=== PATIENT | male | born 1995 | race Caucasian/White ===

== ENCOUNTER 2016-09-19 07:05 | Emergency (ER) | payer BC ==
[2016-09-19 07:22] VITALS: BP 115/77
--- NOTE | 2016-09-19 07:34 | UC ---
Ear Complaint HPI - HPI Summary HPI Summary: LEFT EAR PAIN X 3 DAYS DECREASE HEARING , FEELS PLUGGED, + RINGING IN THE EAR , NO NASAL CONGESTION, NO SINUS PAIN OR PRESSURE , NO COUGH AND NO FEVER. - History of Current Complaint Chief Complaint: UCEar Stated Complaint: RIGHT EAR COMPLAINT Time Seen by Provider: 09/19/16 07:26 Hx Obtained From: Patient Onset/Duration: Gradual Onset, Lasting Days - 3, Still Present Severity Initially: Moderate Severity Currently: Moderate Aggravating Factors: Nothing Alleviating Factors: Nothing Associated Signs/Symptoms: Positive: Hearing Loss - LEFT EAR. Negative: Foreign Body Sensation, Trauma to Ear, Swelling @, URI Symptoms - Allergies/Home Medications Allergies/Adverse Reactions: Allergies Allergy/AdvReac Type Severity Reaction Status Date / Time No Known Allergies Allergy Verified 09/19/16 07:17 Home Medications: Home Medications Ibuprofen TAB* [Advil TAB*] 400 mg PO Q6H PRN 09/19/16 [History Confirmed ] PMH/Surg Hx/FS Hx/Imm Hx Endocrine History Of: Denies: Diabetes, Thyroid Disease Cardiovascular History Of: Denies: Cardiac Disorders, Hypertension, Pacemaker/ICD Respiratory History Of: Denies: COPD, Asthma GI/ History Of: Denies: Ulcer - Surgical History Surgical History: Yes Surgery Procedure, Year, and Place: [place] teeth - Family History Known Family History: Positive: None, Other - no hx gout - Social History Alcohol Use: Occasionally Substance Use Type: None Smoking Status (MU): Never Smoked Tobacco Have You Smoked in the Last Year: No Review of Systems Constitutional: Negative Skin: Negative Eyes: Negative ENT: Ear Ache Respiratory: Negative Cardiovascular: Negative Gastrointestinal: Negative Genitourinary: Negative Motor: Negative All Other Systems Reviewed And Are Negative: Yes Physical Exam Triage Information Reviewed: Yes Appearance: Well-Appearing, No Pain Distress, Well-Nourished Vital Signs: Initial Vital Signs Temp 97.6 F 09/19/16 07:18 Pulse 87 09/19/16 07:18 Resp 16 09/19/16 07:18 BP 115/77 09/19/16 07:18 Pulse Ox 100 09/19/16 07:18 Eye Exam: Normal Eyes: Positive: Conjunctiva Clear ENT: Positive: Normal ENT inspection, Hearing grossly normal, Pharynx normal, Nasal drainage, TMs normal. Negative: TM bulging, TM dull, TM red Dental Exam: Normal Dental: Positive: Percussion Tenderness @ Neck exam: Normal Neck: Positive: Supple, Nontender Respiratory Exam: Normal Respiratory: Positive: Chest non-tender, Lungs clear, Normal breath sounds Cardiovascular: Positive: RRR, No Murmur, Pulses Normal Skin Exam: Normal Ear Complaint Course/Dx - Differential Dx/Diagnosis Provider Diagnoses: EUSTACHIAN TUBE DYSFUNCTION Discharge - Discharge Plan Condition: Stable Disposition: HOME Prescriptions: Fluticasone NASAL SPRAY 50MCG* [Flonase NASAL SPRAY 50MCG*] 2 spray BOTH NARES DAILY #1 btl Patient Education Materials: Eustachian Tube Dysfunction (GEN) Referrals: Ginette Eldridge MD [Primary Care Provider] - 7 Days
== END 2016-09-19 07:38 | disposition home or self-care (01) ==
LOC: UCCORT 07:05
DX: H69.92 Unspecified Eustachian tube disorder, left ear (principal)
CPT/HCPCS: 99212; G0463

== ENCOUNTER 2017-05-21 13:10 | Emergency (ER) | payer BC ==
[2017-05-21 13:26] VITALS: BP 106/78
--- NOTE | 2017-05-21 13:59 | RAD ---
Indication: Left thumb injury. 3 views of left thumb demonstrates no fracture. Soft tissue defect is noted at the distal interphalangeal joint in its ulnar aspect. No radiopaque foreign body or fracture is noted. IMPRESSION: No radiopaque foreign body is noted. No fracture is noted.
--- NOTE | 2017-05-21 14:28 | UC ---
Laceration HPI - HPI Summary HPI Summary: AT 1310 TODAY DRILL BIT SLIPPED CAUSING LACERATION TO LEFT THUMB. TETANUS UTD. 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 Laceration Location: Finger Mechanism Of Injury: Sharp Trauma Onset/Duration: Sudden Onset, Lasting Minutes Severity: Mild Aggravating Factors: Movement Related History: Dominant Hand Right - Allergies/Home Medications Allergies/Adverse Reactions: Allergies Allergy/AdvReac Type Severity Reaction Status Date / Time No Known Allergies Allergy Verified 05/21/17 13:26 PMH/Surg Hx/FS Hx/Imm Hx Previously Healthy: Yes - Surgical History Surgical History: Yes Surgery Procedure, Year, and Place: [place] teeth - Family History Known Family History: Positive: None, Other - no hx gout - Social History Occupation: Student Lives: With Family Alcohol Use: Occasionally Substance Use Type: None Smoking Status (MU): Never Smoked Tobacco Have You Smoked in the Last Year: No Review of Systems Constitutional: Negative Skin: Other - LACERATION LEFT THUMB Eyes: Negative ENT: Negative Respiratory: Negative Cardiovascular: Negative Gastrointestinal: Negative Genitourinary: Negative Motor: Negative Neurovascular: Negative Musculoskeletal: Negative Neurological: Negative Psychological: Negative Is Patient Immunocompromised?: No All Other Systems Reviewed And Are Negative: Yes Physical Exam Triage Information Reviewed: Yes Appearance: Well-Appearing, No Pain Distress, Well-Nourished Vital Signs: Initial Vital Signs Temp 99.2 F 05/21/17 13:18 Pulse 80 05/21/17 13:18 Resp 18 05/21/17 13:18 BP 106/78 05/21/17 13:18 Vital Signs Reviewed: Yes Eye Exam: Normal ENT Exam: Normal ENT: Positive: Normal ENT inspection, Hearing grossly normal, Pharynx normal Dental Exam: Normal Neck exam: Normal Neck: Positive: Supple, Nontender, No Lymphadenopathy Respiratory Exam: Normal Respiratory: Positive: Chest non-tender, Lungs clear, Normal breath sounds, No respiratory distress, No accessory muscle use Cardiovascular Exam: Normal Cardiovascular: Positive: RRR, No Murmur, Pulses Normal Abdominal Exam: Normal Musculoskeletal Exam: Normal Musculoskeletal: Positive: Strength Intact, ROM Intact Neurological Exam: Normal Neurological: Positive: Alert Psychological Exam: Normal Skin: Positive: Other - LACERATION LEFT THUMB Laceration Repair - Laceration Repair 1 Description: Irregular Laceration Size After Repair: Length (cm) - 1, Width (mm) - 2, Depth (mm) - 2 Cleansing Completed Via Routine Prep: Yes Irrigation With Pressure Irrigation Device: Yes Closure Material: Skin Adhesive, SteriStrips Diagnostics - Radiology No standard instances Xray Interpretation: Positive (See Comments) - Interpreted by radiologist, reviewed by PAAnnabella. Interpretation : NO FRACTURE OR RADIO-OPAQUE FOREIGN BODY Radiology Interpretation Completed By: ED Physician, Radiologist Laceration Course/Dx - Differential Dx - Laceration/Wound Differental Diagnoses: Laceration Provider Diagnoses: LACERATION LEFT THUMB WITH STERISTRIP/SKIN ADHESIVE REPAIR Discharge - Discharge Plan Condition: Stable Disposition: HOME Patient Education Materials: Finger Laceration (ED), Skin Adhesive Care (ED), Steristrips (ED) Referrals: Ginette Eldridge MD [Primary Care Provider] -
== END 2017-05-21 14:24 | disposition home or self-care (01) ==
LOC: UCCORT 13:10
DX: S61.012A Laceration without foreign body of left thumb without damage to nail, initial encounter (principal); W27.8XXA Contact with other nonpowered hand tool, initial encounter
CPT/HCPCS: 12001; 99211; G0463

== ENCOUNTER 2017-06-18 08:47 | Emergency (ER) | payer BC ==
--- NOTE | 2017-06-18 09:06 | UC ---
Nausea/Vomiting/Diarrhea HPI - HPI Summary HPI Summary: 21 year old male presents with severe diarrhea x 1 week. - History of Current Complaint Stated Complaint: DIARRHEA Time Seen by Provider: 06/18/17 09:05 Hx Obtained From: Patient Onset/Duration: Sudden Onset Severity Initially: Moderate Severity Currently: Moderate Pain Scale Used: 0-10 Numeric - 0 - Allergies/Home Medications Allergies/Adverse Reactions: Allergies Allergy/AdvReac Type Severity Reaction Status Date / Time No Known Allergies Allergy Verified 06/18/17 09:09 PMH/Surg Hx/FS Hx/Imm Hx Previously Healthy: Yes - Surgical History Surgical History: Yes Surgery Procedure, Year, and Place: [place] teeth - Family History Known Family History: Positive: None, Other - no hx gout - Social History Alcohol Use: Occasionally Substance Use Type: None Smoking Status (MU): Never Smoked Tobacco Have You Smoked in the Last Year: No Review of Systems Constitutional: Negative Skin: Negative Eyes: Negative ENT: Negative Respiratory: Negative Cardiovascular: Negative Gastrointestinal: Diarrhea Genitourinary: Negative Motor: Negative Neurovascular: Negative Musculoskeletal: Negative Neurological: Negative Psychological: Negative All Other Systems Reviewed And Are Negative: Yes Physical Exam Triage Information Reviewed: Yes Eye Exam: Normal ENT Exam: Normal Dental Exam: Normal Neck exam: Normal Neck: Positive: 1 Respiratory Exam: Normal Cardiovascular Exam: Normal Abdominal Exam: Normal Musculoskeletal Exam: Normal Neurological Exam: Normal Psychological Exam: Normal Skin Exam: Normal Naus/Vom/Diarrhea Course/Dx - Differential Dx/Diagnosis Provider Diagnoses: diarrhea Condition At Discharge: Stable Discharge - Discharge Plan Condition: Stable Disposition: OTHER Discharge Disposition Comment: patient suggested to go to the er Patient Education Materials: Acute Diarrhea (ED) Referrals: Ginette Eldridge MD [Primary Care Provider] - Additional Instructions: PATIENT SUGGESTED TO GO TO THE ER FOR SEVERE DIARRHEA
[2017-06-18 09:09] VITALS: BP 110/74
== END 2017-06-18 09:20 ==
LOC: UCCORT 08:47
DX: R19.7 Diarrhea, unspecified (principal)
CPT/HCPCS: 99212; G0463

== ENCOUNTER 2017-08-27 14:32 | Emergency (ER) | payer SELFPAY ==
[2017-08-27 15:17] VITALS: BP 124/69
--- NOTE | 2017-08-27 15:30 | ED ---
Throat Pain/Nasal Congestion - HPI Summary HPI Summary: 21 yr old male with the complaint of FB in right eye. The patient was using a saws all on an old pipe overhead and felt some metal shavings go in his right eye. he flushed his eye, but feels like he might have piece still in eye. Denies blurred vision. He states last tetanus shot is up to date. - History of Current Complaint Chief Complaint: UCEye Time Seen by Provider: 08/27/17 15:18 - Allergies/Home Medications Allergies/Adverse Reactions: Allergies Allergy/AdvReac Type Severity Reaction Status Date / Time No Known Allergies Allergy Verified 08/27/17 15:12 PMH/Surg Hx/FS Hx/Imm Hx Endocrine/Hematology History: Denies: Hx Diabetes, Hx Thyroid Disease Cardiovascular History: Denies: Hx Hypertension, Hx Pacemaker/ICD Respiratory History: Denies: Hx Asthma, Hx Chronic Obstructive Pulmonary Disease (COPD) GI History: Denies: Hx Ulcer Sensory History: Denies: Hx Hearing Aid Psychiatric History: Denies: Hx Panic Disorder - Surgical History Surgery Procedure, Year, and Place: [place] teeth Infectious Disease History: No Infectious Disease History: Denies: Hx Clostridium Difficile, Hx Hepatitis, Hx Human Immunodeficiency Virus (HIV), Hx of Known/Suspected MRSA, Hx Shingles, Hx Tuberculosis, Hx Known/ Suspected VRE, Hx Known/Suspected VRSA, History Other Infectious Disease, Traveled Outside the in Last 30 Days - Family History Known Family History: Positive: None, Other - no hx gout - Social History Occupation: Employed Full-time Alcohol Use: Occasionally Substance Use Type: Reports: None Smoking Status (MU): Never Smoked Tobacco Have You Smoked in the Last Year: No Review of Systems Constitutional: Negative Positive: Other - irritation right eye, possible FB. All Other Systems Reviewed And Are Negative: Yes Physical Exam Triage Information Reviewed: Yes Vital Signs On Initial Exam: Initial Vitals Temp Pulse Resp BP Pulse Ox 98 F 74 16 124/69 98 08/27/17 15:10 08/27/17 15:10 08/27/17 15:10 08/27/17 15:10 08/27/17 15:10 Vital Signs Reviewed: Yes Appearance: Positive: Well-Appearing, No Pain Distress Skin: Positive: Warm, Skin Color Reflects Adequate Perfusion Head/Face: Positive: Normal Head/Face Inspection Eyes: Positive: EOMI, CHRISTIE, Conjunctiva Inflammed - right eye, Other: - No obvious FB seen, but suspect could have FB at the 8 oclock position limbus right eye. Visualized under light from otoscope with naked eye. Diagnostics - Vital Signs Vital Signs Temp Pulse Resp BP Pulse Ox 08/27/17 15:10 98 F 74 16 124/69 98 - Laboratory Lab Statement: Any lab studies that have been ordered have been reviewed, and results considered in the medical decision making process. EENT Course/Dx - Course Course Of Treatment: 21 yr old male who required ER visit so that slit lamp exam can be done. He is aware he needs to go to the ER for further examination with slit lamp and possible removal of FB seen under high magnification. - Diagnoses Provider Diagnoses: FB eye Discharge - Discharge Plan Condition: Good Disposition: HOME Patient Education Materials: Eye Foreign Body (ED) Referrals: Ginette Eldridge MD [Primary Care Provider] - Additional Instructions: You need to go to the ER in [place] where they have the equipment to view your eye under magnification. Please go there immediately from here for further care. It is possible you have a piece of metal in your cornea.
== END 2017-08-27 15:29 | disposition home or self-care (01) ==
LOC: UCCORT 14:32
DX: T15.91XA Foreign body on external eye, part unspecified, right eye, initial encounter (principal); S05.51XA Penetrating wound with foreign body of right eyeball, initial encounter
CPT/HCPCS: 99212; G0463

== ENCOUNTER 2017-12-20 09:36 | Emergency (ER) | payer BC ==
--- NOTE | 2017-12-20 10:07 | UC ---
Skin Complaint HPI - History of Current Complaint Time Seen by Provider: 12/20/17 09:57 Stated Complaint: L SIDE FACIAL SWELLING Hx Obtained From: Patient Onset/Duration: Lasting Days Onset Severity: Mild Current Severity: Mild Location: Discrete - hx. of acne - Allergy/Home Medications Allergies/Adverse Reactions: Allergies Allergy/AdvReac Type Severity Reaction Status Date / Time No Known Allergies Allergy Verified 08/27/17 15:12 Review of Systems Constitutional: Negative Skin: Negative, Other - swelling along jaw line with some tenderness ENT: Negative Respiratory: Negative Cardiovascular: Negative Gastrointestinal: Negative Genitourinary: Negative Motor: Negative Neurovascular: Negative Musculoskeletal: Negative Neurological: Negative Is Patient Immunocompromised?: No All Other Systems Reviewed And Are Negative: Yes PMH/Surg Hx/FS Hx/Imm Hx - Surgical History Surgical History: Yes Surgery Procedure, Year, and Place: [place] teeth - Family History Known Family History: Positive: None, Other - no hx gout - Social History Alcohol Use: Occasionally Substance Use Type: None Smoking Status (MU): Never Smoked Tobacco Have You Smoked in the Last Year: No Physical Exam Triage Information Reviewed: Yes Appearance: Well-Appearing Vital Signs Reviewed: Yes Eye Exam: Normal Eyes: Positive: Conjunctiva Clear ENT Exam: Normal Dental Exam: Normal Neck exam: Normal Neck: Positive: Supple Respiratory Exam: Normal Cardiovascular Exam: Normal Abdominal Exam: Normal Bowel Sounds: Positive: Present Skin Exam: Other - firm lesion along left jaw line with tenderness, no obvious area of drainage c/w cystic acne Course/Dx - Diagnoses Provider Diagnoses: cystic acne Discharge - Sign-Out/Discharge Documenting (check all that apply): Patient Departure - Discharge Plan Condition: Good Disposition: HOME Prescriptions: DOXYcycline CAP(*) [DOXYcycline 100MG CAP(*)] 100 mg PO BID 7 Days #14 cap Patient Education Materials: Antiacne Antibacterial (On the skin) Referrals: Ginette Eldridge MD [Primary Care Provider] - - Billing Disposition and Condition Condition: GOOD Disposition: Home
[2017-12-20 10:11] VITALS: BP 100/69
== END 2017-12-20 10:27 | disposition home or self-care (01) ==
LOC: UCCORT 09:36
DX: L70.0 Acne vulgaris (principal)
CPT/HCPCS: 99212; G0463